=== PATIENT | female | born 1945 | race Caucasian/White ===

== ENCOUNTER → 2016-08-22 | Outpatient (CLI) | payer OTHER ==
[~2016-08-22] MED LIST: MULTIVITAMINS; PREMPRO 0.3 MG1 EACH PO; ZEGERID 40 MG1 EACH PO
== END ==
LOC: RAD 08:55
DX: I73.9 Peripheral vascular disease, unspecified (principal); M16.11 Unilateral primary osteoarthritis, right hip

== ENCOUNTER → 2017-04-26 | Outpatient (CLI) | payer OTHER | LOC: HYPER 06:41 | DX: S81.001A Unspecified open wound, right knee, initial encounter (principal); M15.9 Polyosteoarthritis, unspecified; M70.61 Trochanteric bursitis, right hip; M70.62 Trochanteric bursitis, left hip; Z79.899 Other long term (current) drug therapy; Z72.89 Other problems related to lifestyle; X58.XXXA Exposure to other specified factors, initial encounter; Y93.89 Activity, other specified; Y92.89 Other specified places as the place of occurrence of the external cause; Y99.8 Other external cause status ==

== ENCOUNTER → 2017-05-03 | Outpatient (CLI) | payer OTHER | LOC: HYPER 06:56 | DX: S81.001D Unspecified open wound, right knee, subsequent encounter (principal); M15.9 Polyosteoarthritis, unspecified; Z79.899 Other long term (current) drug therapy; Z72.89 Other problems related to lifestyle; X58.XXXD Exposure to other specified factors, subsequent encounter ==

== ENCOUNTER → 2017-05-10 | Outpatient (CLI) | payer OTHER | LOC: HYPER 06:49 | DX: S81.001D Unspecified open wound, right knee, subsequent encounter (principal); M15.9 Polyosteoarthritis, unspecified; Z79.899 Other long term (current) drug therapy; Z72.89 Other problems related to lifestyle; X58.XXXD Exposure to other specified factors, subsequent encounter ==

== ENCOUNTER → 2017-05-17 | Outpatient (CLI) | payer OTHER | LOC: HYPER 08:26 | DX: S81.001D Unspecified open wound, right knee, subsequent encounter (principal); M15.9 Polyosteoarthritis, unspecified; M70.61 Trochanteric bursitis, right hip; M70.62 Trochanteric bursitis, left hip; Z79.899 Other long term (current) drug therapy; M19.90 Unspecified osteoarthritis, unspecified site; Z72.89 Other problems related to lifestyle; X58.XXXD Exposure to other specified factors, subsequent encounter ==

== ENCOUNTER → 2017-05-29 | Outpatient (CLI) | payer OTHER | LOC: HYPER 07:08 | DX: S81.001D Unspecified open wound, right knee, subsequent encounter (principal); M15.9 Polyosteoarthritis, unspecified; M70.61 Trochanteric bursitis, right hip; M70.62 Trochanteric bursitis, left hip; Z72.89 Other problems related to lifestyle; Z79.899 Other long term (current) drug therapy; W19.XXXD Unspecified fall, subsequent encounter ==

== ENCOUNTER → 2017-06-05 | Outpatient (CLI) | payer OTHER | LOC: HYPER 06:48 | DX: S81.001D Unspecified open wound, right knee, subsequent encounter (principal); M70.61 Trochanteric bursitis, right hip; M70.62 Trochanteric bursitis, left hip; M19.90 Unspecified osteoarthritis, unspecified site; Z79.899 Other long term (current) drug therapy; Z72.89 Other problems related to lifestyle; X58.XXXD Exposure to other specified factors, subsequent encounter ==

== ENCOUNTER → 2017-06-19 | Outpatient (CLI) | payer OTHER | LOC: HYPER 07:02 | DX: S81.001D Unspecified open wound, right knee, subsequent encounter (principal); M15.9 Polyosteoarthritis, unspecified; M70.61 Trochanteric bursitis, right hip; M70.62 Trochanteric bursitis, left hip; M19.90 Unspecified osteoarthritis, unspecified site; Z79.899 Other long term (current) drug therapy; X58.XXXD Exposure to other specified factors, subsequent encounter ==

== ENCOUNTER → 2017-06-26 | Outpatient (CLI) | payer OTHER | LOC: HYPER 06:41 | DX: S81.001D Unspecified open wound, right knee, subsequent encounter (principal); M15.9 Polyosteoarthritis, unspecified; M70.61 Trochanteric bursitis, right hip; M70.62 Trochanteric bursitis, left hip; Z79.899 Other long term (current) drug therapy; X58.XXXD Exposure to other specified factors, subsequent encounter ==

== ENCOUNTER → 2017-06-28 | Outpatient (CLI) | payer OTHER | LOC: HYPER 07:03 | DX: S81.001D Unspecified open wound, right knee, subsequent encounter (principal); M15.9 Polyosteoarthritis, unspecified; M70.61 Trochanteric bursitis, right hip; M70.62 Trochanteric bursitis, left hip; Z79.899 Other long term (current) drug therapy; X58.XXXD Exposure to other specified factors, subsequent encounter ==

== ENCOUNTER → 2017-07-02 | Outpatient (CLI) | payer OTHER | LOC: HYPER 06:53 | DX: S81.001D Unspecified open wound, right knee, subsequent encounter (principal); M15.9 Polyosteoarthritis, unspecified; M70.61 Trochanteric bursitis, right hip; M70.62 Trochanteric bursitis, left hip; Z79.899 Other long term (current) drug therapy; X58.XXXD Exposure to other specified factors, subsequent encounter ==

== ENCOUNTER → 2017-07-06 | Outpatient (CLI) | payer OTHER | LOC: HYPER 07:58 | DX: S81.001D Unspecified open wound, right knee, subsequent encounter (principal); M15.9 Polyosteoarthritis, unspecified; M70.61 Trochanteric bursitis, right hip; M70.62 Trochanteric bursitis, left hip; X58.XXXD Exposure to other specified factors, subsequent encounter; Z79.899 Other long term (current) drug therapy ==

== ENCOUNTER → 2017-07-19 | Outpatient (CLI) | payer OTHER | LOC: HYPER 06:41 | DX: S81.001D Unspecified open wound, right knee, subsequent encounter (principal); M15.9 Polyosteoarthritis, unspecified; M70.61 Trochanteric bursitis, right hip; M70.62 Trochanteric bursitis, left hip; Z79.899 Other long term (current) drug therapy; X58.XXXD Exposure to other specified factors, subsequent encounter ==

== ENCOUNTER → 2017-08-01 | Outpatient (CLI) | payer OTHER | LOC: HYPER 06:47 | DX: S81.001D Unspecified open wound, right knee, subsequent encounter (principal); M15.9 Polyosteoarthritis, unspecified; M70.61 Trochanteric bursitis, right hip; M70.62 Trochanteric bursitis, left hip; Z79.899 Other long term (current) drug therapy; M19.90 Unspecified osteoarthritis, unspecified site; X58.XXXD Exposure to other specified factors, subsequent encounter ==

== ENCOUNTER 2018-11-09 07:10 | Emergency (ER) | payer OTHER ==
[~2018-11-09] VITALS: Ht 157.5 cm; Wt 68.0 kg
[2018-11-09] MEDS ORDERED: CYMBALTA30 MG PO (07:30)
[2018-11-09] MEDS ORDERED: TRAMADOL 50 MG50 MG PO (07:31)
[2018-11-09] MEDS ORDERED: MOBIC7.5 MG PO (07:32)
[2018-11-09 07:41] LABS: URINE BILIRUBIN NEGATIVE (Negative); URINE BLOOD 3+ (Negative); URINE CLARITY CLEAR; URINE COLOR YELLOW; URINE GLUCOSE-RANDOM* NEGATIVE (Negative); URINE KETONES TRACE (Negative); URINE PROTEIN (DIPSTICK) 3+ (Negative); URINE SPECIFIC GRAVITY 1.015 (1.005-1.035)
[2018-11-09 07:42] LABS: URINE LEUKOCYTES-REFLEX 3+ (Negative); URINE NITRITE-REFLEX POSITIVE (Negative)
[2018-11-09 07:44] LABS: CASTS None Seen /LPF (None Seen); CRYSTALS None Seen /LPF (None Seen); SQUAMOUS 0-3 Few /LPF (0-3); URINE RBC >20 Many /HPF (0-2); WBC CLUMPS Moderate (None Seen)
[2018-11-09 08:03] LABS: ABSOLUTE NEUTROPHILS 8.6 thou/uL (1.4-8.2); BASOPHILS 0.5 % (0.0-2.0); EOSINOPHILS 0.1 % (0.0-3.0); HEMATOCRIT 36.4 % (37.0-47.0); HEMOGLOBIN 12.6 gm/dL (12.0-15.0); LYMPHOCYTES 4.2 % (24.0-44.0); MCH 30.7 pg (26.0-34.0); MCHC 34.5 g/dL (28.0-37.0); MCV 89.2 fL (80.0-100.0); MONOCYTES 6.8 % (1.0-8.0); PLATELET COUNT 248 thou/uL (150-400); POLYS 88.4 % (36.0-66.0); RBC 4.09 mil/uL (4.20-5.00); RDW 12.6 % (10.5-14.5); WBC 9.8 thou/uL (4.0-11.0)
[2018-11-09 08:13] LABS: CALCIUM 9.1 mg/dL (8.5-10.1); CREATININE 0.8 mg/dL (0.6-1.0)
[2018-11-09 08:19] LABS: ALBUMIN 3.2 g/dL (3.4-5.0); DIRECT BILIRUBIN 0.1 mg/dL (<0.1-0.3); TOTAL BILIRUBIN 0.6 mg/dL (<0.1-1.0); TOTAL PROTEIN 6.9 g/dL (6.4-8.2)
[2018-11-09] MEDS ORDERED: KEFLEX500 M1 PO (09:30)
[2018-11-09 09:48] VITALS: BP 137/53
== END 2018-11-09 09:48 | disposition home or self-care (01) ==
LOC: ER 07:10
PROVIDERS: Emergency Medicine
DX: R10.31 Right lower quadrant pain (principal); K21.9 Gastro-esophageal reflux disease without esophagitis; Z90.10 Acquired absence of unspecified breast and nipple; Z88.8 Allergy status to other drugs, medicaments and biological substances